=== PATIENT | female | born 2000 | race Two or more races ===

== ENCOUNTER 2022-11-29 21:22 | Emergency (ER) | payer MEDICAID ==
[~2022-11-29] VITALS: Ht 172.7 cm; Wt 109.1 kg
[2022-11-30] MEDS ORDERED: NEOMYCIN-BACITRACIN-POLYM UNITDOSE PKG TOP OINT TOP ONE (00:15)
[2022-11-30 00:35] VITALS: BP 129/90
[2022-11-30] MEDS ORDERED: ACET1CAP14 PO (13:41)
== END 2022-11-30 01:13 | disposition home or self-care (01) ==
LOC: ER 21:22
DX: S61.011A Laceration without foreign body of right thumb without damage to nail, initial encounter (principal); W26.8XXA Contact with other sharp object(s), not elsewhere classified, initial encounter; Y93.89 Activity, other specified; Y92.89 Other specified places as the place of occurrence of the external cause; Y99.8 Other external cause status

== ENCOUNTER 2022-11-30 10:42 | Emergency (ER) | payer MEDICAID ==
[~2022-11-30] VITALS: Ht 172.7 cm; Wt 107.5 kg
[2022-11-30 12:45] VITALS: BP 137/89
[2022-11-30] MEDS ORDERED: TETANUS-DIPTH-ACEL PERTUSSIS 0.5ML SYR Tdap IM ONE (13:00)
[2022-11-30] MEDS ORDERED: ACETAMINOPHEN 500 MG TAB PO ONE (13:00)
[2022-11-30] MEDS ORDERED: ACET1CAP14 PO (13:41)
== END 2022-11-30 13:41 | disposition home or self-care (01) ==
LOC: ER 10:42
DX: S61.011D Laceration without foreign body of right thumb without damage to nail, subsequent encounter (principal); Z23 Encounter for immunization; W26.8XXD Contact with other sharp object(s), not elsewhere classified, subsequent encounter
CPT/HCPCS: 90471; 90715

== ENCOUNTER 2023-05-14 12:55 | Emergency (ER) | payer MEDICAID ==
[~2023-05-14] VITALS: Ht 170.2 cm; Wt 107.6 kg
[~2023-05-14 12:55] MED LIST: ACET1CAP14 PO
[2023-05-14 13:14] VITALS: BP 125/85
[2023-05-14 14:09] LABS: Urine Bacteria FEW /hpf (None Seen); Urine Blood Negative /uL (Negative); Urine Mucus FEW (None Seen); Urine WBC 3 /hpf (0 - 5)
[2023-05-14] MEDS ORDERED: TIZA4CAP PO (14:36)
[2023-05-14] MEDS ORDERED: TOB03OS OP (14:36)
[2023-05-14] MEDS ORDERED: FLUC150T38 PO (14:36)
== END 2023-05-14 15:04 | disposition home or self-care (01) ==
LOC: ER 12:55
DX: S00.211A Abrasion of right eyelid and periocular area, initial encounter (principal); B37.31 Acute candidiasis of vulva and vagina; Z76.0 Encounter for issue of repeat prescription; Z79.2 Long term (current) use of antibiotics; Z79.899 Other long term (current) drug therapy; X58.XXXA Exposure to other specified factors, initial encounter; Y93.89 Activity, other specified; Y92.89 Other specified places as the place of occurrence of the external cause; Y99.8 Other external cause status
CPT/HCPCS: 81001; 81025

== ENCOUNTER 2023-06-23 12:22 | Emergency (ER) | payer MEDICAID ==
[~2023-06-23] VITALS: Ht 170.2 cm; Wt 107.0 kg
[~2023-06-23 12:22] MED LIST changes: +FLUC150T38 PO; +TIZA4CAP PO; +TOB03OS OP
[2023-06-23 13:22] VITALS: BP 133/94; PULSE 88; RESP 16; TEMP 98.9; O2SAT 98
[2023-06-23] MEDS ORDERED: IBUP-1456 PO (14:17)
[2023-06-23] MEDS ORDERED: METH-1182 PO (14:17)
== END 2023-06-23 14:26 | disposition home or self-care (01) ==
LOC: ER 12:22
DX: S16.1XXA Strain of muscle, fascia and tendon at neck level, initial encounter (principal); S39.012A Strain of muscle, fascia and tendon of lower back, initial encounter; Z79.899 Other long term (current) drug therapy; V49.9XXA Car occupant (driver) (passenger) injured in unspecified traffic accident, initial encounter; Y93.89 Activity, other specified; Y92.89 Other specified places as the place of occurrence of the external cause; Y99.8 Other external cause status
CPT/HCPCS: 72040; 72070

== ENCOUNTER 2024-02-12 19:24 | Emergency (ER) | payer MEDICAID ==
[~2024-02-12] VITALS: Ht 170.2 cm; Wt 105.0 kg
[~2024-02-12 19:24] MED LIST changes: +IBUP-1456 PO; +METH-1182 PO
[2024-02-12 20:02] LABS: Basophils # (auto) 0.2 10 ^3/uL (0-0.2); Basophils % (auto) 0.8 % (0.0-2.0); Eosinophils # (auto) 0.1 10 ^3/uL (0-0.8); Eosinophils % (auto) 0.4 % (0.0-7.0); Hematocrit 38.6 % (36.0-46.0); Hemoglobin 12.8 g/dL (12.2-16.2); Lymphocytes # (auto) 2.4 10 ^3/uL (0.4-5.4); Lymphocytes % (auto) 11.6 % (10.0-50.0); Mean Corpuscular Hemoglobin 27.1 pg (28.0-32.0); Mean Corpuscular Hgb Conc. 33.2 g/dL (32.0-36.0); Mean Corpuscular Volume 81.6 fL (80.0-100.0); Monocytes # (auto) 0.9 10 ^3/uL (0-1.3); Monocytes % (auto) 4.6 % (0.0-12.0); Neutrophils # (auto) 17.2 10 ^3/uL (1.6-8.6); Neutrophils % (auto) 82.6 % (37.0-80.0); Red Blood Cells 4.73 10^6/uL (4.0-5.20); Red Cell Distribution Width 15.5 % (11.8-14.3); White Blood Cell 20.9 10^3/uL (4.4-10.8)
[2024-02-12 20:03] VITALS: BP 127/86; RESP 20; TEMP 99.1; O2SAT 100
[2024-02-12 20:25] LABS: Alanine Aminotransferase 15 U/L (7-40); Albumin 4.6 g/dL (3.2-4.8); Alkaline Phosphatase 92 U/L (46-116); Anion Gap 9 (5-15); Aspartate Aminotransferase 19 U/L (13-40); BUN/Creatinine Ratio 8.6 (10.0-20.0); Bilirubin, Total 0.4 mg/dL (0.2-1.0); Blood Urea Nitrogen 7 mg/dL (9-23); Calcium 9.6 mg/dL (8.5-10.1); Carbon Dioxide 21 mmol/L (20-30); Chloride 109 mmol/L (98-107); Glucose 120 mg/dL (74-106); Potassium 3.6 mmol/L (3.5-5.1); Sodium 139 mmol/L (136-145); Total Protein 7.2 g/dL (5.7-8.2)
[2024-02-12] MEDS: HYDROcodone-ACET 5/325MG TAB PO ONE (21:18)
[2024-02-13] MEDS: SODIUM CHLORIDE 0.9% 1,000 ML IV ONE (00:07)
[2024-02-13] MEDS: CLINDAMYCIN 600MG IV 50 ML IV ONE (00:15)
[2024-02-13] MEDS ORDERED: CLIN1CAP70 PO (00:23)
[2024-02-13] MEDS ORDERED: IBUP1TAB5 PO (00:23)
[2024-02-13] MEDS ORDERED: HYDR25CA PO (00:23)
[2024-02-13 00:31] VITALS: PULSE 108
== END 2024-02-13 01:50 | disposition home or self-care (01) ==
LOC: ER 19:24
DX: R00.2 Palpitations (principal); L03.211 Cellulitis of face; K04.7 Periapical abscess without sinus; F41.9 Anxiety disorder, unspecified; Z79.1 Long term (current) use of non-steroidal anti-inflammatories (NSAID); Z79.2 Long term (current) use of antibiotics; Z79.899 Other long term (current) drug therapy; Z91.018 Allergy to other foods
CPT/HCPCS: 36415; 71045; 80053; 80320; 83605; 84443; 84484; 85025; 93005; 96365; 99285; J3490; J7030

== ENCOUNTER 2024-02-21 19:13 | Emergency (ER) | payer MEDICAID ==
[~2024-02-21] VITALS: Ht 170.2 cm; Wt 104.5 kg
[~2024-02-21 19:13] MED LIST changes: +CLIN1CAP70 PO; +HYDR25CA PO; +IBUP1TAB5 PO
[2024-02-21 19:42] VITALS: BP 135/95; PULSE 100; RESP 15; O2SAT 99
[2024-02-21 20:39] LABS: Urine Bacteria None Seen /hpf (None Seen)
[2024-02-21 21:42] LABS: Urine Blood Negative /uL (Negative); Urine Clarity Clear (Clear); Urine Color Light-Yellow (Yellow); Urine Mucus FEW (None Seen); Urine Protein, UAD Negative (Negative); Urine Specific Gravity 1.026 (1.001-1.035); Urine Urobilinogen Normal (Negative); Urine WBC <1 /hpf (0 - 5); Urine pH 6.5 (5.0-9.0)
== END 2024-02-21 20:41 | disposition left against medical advice (07) ==
LOC: ER 19:13
DX: N89.8 Other specified noninflammatory disorders of vagina (principal); Z53.21 Procedure and treatment not carried out due to patient leaving prior to being seen by health care provider
CPT/HCPCS: 81001; 81025

== ENCOUNTER 2024-02-22 18:34 | Emergency (ER) | payer MEDICAID ==
[~2024-02-22] VITALS: Ht 170.2 cm; Wt 103.0 kg
[2024-02-22] MEDS: SODIUM CHLORIDE 0.9% 1,000 ML IV ONE (19:30)
[2024-02-22 19:53] LABS: Basophils # (auto) 0.1 10 ^3/uL (0-0.2); Basophils % (auto) 0.9 % (0.0-2.0); Eosinophils # (auto) 0 10 ^3/uL (0-0.8); Eosinophils % (auto) 0.2 % (0.0-7.0); Hematocrit 36.8 % (36.0-46.0); Lymphocytes # (auto) 1.7 10 ^3/uL (0.4-5.4); Lymphocytes % (auto) 11.8 % (10.0-50.0); Mean Corpuscular Hemoglobin 26.7 pg (28.0-32.0); Mean Corpuscular Hgb Conc. 32.6 g/dL (32.0-36.0); Mean Corpuscular Volume 81.8 fL (80.0-100.0); Monocytes # (auto) 0.8 10 ^3/uL (0-1.3); Monocytes % (auto) 5.5 % (0.0-12.0); Neutrophils # (auto) 11.8 10 ^3/uL (1.6-8.6); Neutrophils % (auto) 81.6 % (37.0-80.0); Red Cell Distribution Width 15.4 % (11.8-14.3); White Blood Cell 14.4 10^3/uL (4.4-10.8)
[2024-02-22] MEDS: FLUCONAZOLE 100 MG TAB PO ONE (21:05)
[2024-02-22 21:08] VITALS: BP 134/87; PULSE 100; RESP 18; TEMP 99.1; O2SAT 98
== END 2024-02-22 21:07 | disposition home or self-care (01) ==
LOC: ER 18:34
DX: R50.9 Fever, unspecified (principal); J45.909 Unspecified asthma, uncomplicated; Z98.811 Dental restoration status
CPT/HCPCS: 36415; 85025; 96360; 99283; J7030